=== PATIENT | male | born 1985 | race Caucasian/White ===

== ENCOUNTER 2022-01-05 06:35 | Emergency (ER) | payer MEDICAID ==
[~2022-01-05] VITALS: Ht 177.8 cm; Wt 109.0 kg
[2022-01-05] MEDS ORDERED: HYDROCODONE/ACETAMINOPHEN 5/325MG TABLET PO ONE (08:15)
[2022-01-05 08:27] VITALS: BP 149/79
[2022-01-05] MEDS ORDERED: T3 PO (10:17)
[2022-01-05] MEDS ORDERED: DICL50TA9 MT (10:17)
== END 2022-01-05 10:28 | disposition home or self-care (01) ==
LOC: ER 06:35
DX: M25.512 Pain in left shoulder (principal)
CPT/HCPCS: 73030; 73060; 99284